=== PATIENT | male | born 1965 ===

== ENCOUNTER 2023-08-21 16:44 | Emergency (ER) | payer OTHER ==
[2023-08-21] MEDS ORDERED: Iopamidol 612 MG/ML 100 ML Bottle IVPUSH ONE (17:00)
[2023-08-21 17:20] LABS: HEMATOCRIT 39.2 % (40.0-54.0); HEMOGLOBIN 12.6 g/dL (14.0-18.0); MEAN CORPUSCULAR HEMOGLOBIN 30.7 pg (27.0-34.0); MEAN CORPUSCULAR HGB CONC 32.1 g/dL (33.0-35.0); MEAN CORPUSCULAR VOLUME 95.4 fL (80-100); PLATELET COUNT,PLT 280 10^3/uL (150-450); RED BLOOD CELL COUNT 4.11 10^6/uL (4.6-6.2)
[2023-08-21 17:21] LABS: BASOPHILS PERCENT AUTO 0.1 % (0.0-1.0); EOSINOPHILS PERCENT AUTO 0.8 % (1.0-3.0); LYMPHOCYTES PERCENT AUTO 31.3 % (20.5-50.1); MONOCYTES PERCENT AUTO 10.4 % (2-8); NEUTROPHILS PERCENT AUTO 57.4 % (42.2-75.2)
[2023-08-21] MEDS: Sodium Chloride 0.9% 1,000 ML IV SCH (17:21)
[2023-08-21 17:30] LABS: APPEARANCE,URINE CLOUDY (CLEAR); BILIRUBIN,URINE NEGATIVE (NEGATIVE); COLOR,URINE YELLOW (YELLOW); GLUCOSE,URINE NEGATIVE (NEGATIVE); KETONES,URINE NEGATIVE (NEGATIVE); LEUKOCYTE ESTERASE,URINE LARGE (NEGATIVE); NITRITE,URINE NEGATIVE (NEGATIVE); OCCULT BLOOD,URINE MODERATE (NEGATIVE); PH,URINE 5.5 (5.0-9.0); PROTEIN,URINE 100 (NEGATIVE); UROBILINOGEN,URINE 0.2 mg/dL (0.2-1.0)
[2023-08-21 17:43] LABS: ANION GAP 10.6 mEq/L (7-13); BILIRUBIN DIRECT 0.1 mg/dL (0.0-0.2); BILIRUBIN INDIRECT 0.3; BILIRUBIN TOTAL 0.4 mg/dL (0.2-1.0); CALCIUM 8.8 mg/dL (8.5-10.1); CREATININE 1.79 mg/dL (0.70-1.30); EST CRCL DRUG DOSING (CG) 45.88 mL/min; POTASSIUM,K 3.6 mmol/L (3.5-5.1); PROTEIN TOTAL,TP 7.5 g/dL (6.4-8.2)
[2023-08-21 17:45] LABS: A/G RATIO 0.67
[2023-08-21 17:48] LABS: BACTERIA,URINE FEW /HPF (0-FEW/HPF); EPITHELIAL CELLS,URINE FEW /HPF (NOT SEEN); RBC,URINE 20-30 /HPF (0-5); WBC,URINE 50-75 /HPF (0-5/HPF)
[2023-08-21 18:31] LABS: EOSINOPHILS PERCENT MAN 1 % (1-3); LYMPHOCYTES PERCENT MAN 26 % (20-50); MONOCYTES PERCENT MAN 10 % (2-8); SEG NEUTROPHILS PERCENT MAN 63 % (42-75)
[2023-08-21] MEDS: cefTRIAXone 1 GM Vial IVPUSH ONE (19:30)
[2023-08-21] MEDS: Orphenadrine 60 MG/2 ML Inj IM ONE (19:40)
[2023-08-21] MEDS: Azithromycin 500 MG in Sodium Chloride 0.9% 250 ML IV ONE (19:52)
[2023-08-21] MEDS: Orphenadrine 60 MG/2 ML Inj IV ONE (21:00)
[2023-08-21] MEDS: Ciprofloxacin in D5W 400 MG in Premix Bag 1 BAG IV ONE (22:53)
== END 2023-08-21 21:15 | disposition home or self-care (01) ==
LOC: DL.ED 16:44
DX: N39.0 Urinary tract infection, site not specified (principal); J18.9 Pneumonia, unspecified organism; C64.9 Malignant neoplasm of unspecified kidney, except renal pelvis; I10 Essential (primary) hypertension; Z91.018 Allergy to other foods
CPT/HCPCS: 36415; 70450; 71045; 74176; 80048; 80076; 81001; 84484; 85025; 87040; 87086; 93005; 93010; 96361; 96365; 96375; 99285-25; 99291; J0456; J0696; J2360; J7030; J7050